=== PATIENT | male | born 1995 | race African-American/Black ===

== ENCOUNTER 2018-10-29 16:48 | Outpatient (REF) | payer MEDICAID, SELFPAY ==
[2018-10-29 18:54] LABS: ALT 50 U/L (16-63); AST 23 U/L (15-37); Albumin 3.6 g/dL (3.4-5.0); Alkaline Phosphatase 98 U/L (46-116); Anion Gap 11.2 mmol/L (3-11); BUN 12 mg/dL (7-18); Bilirubin, Total 0.4 mg/dL (0.2-1.0); CO2 28.8 mmol/L (21.0-32.0); CREATININE 0.91 mg/dL (0.70-1.30); Calcium 9.5 mg/dL (8.5-10.1); Calculated LDL 128 mg/dL; Chloride 98 mmol/L (98-107); Cholesterol 181 mg/dL (50-200); Glucose 296 mg/dL (70-100); HDL Cholesterol 25 mg/dL (40-60); Potassium 4.2 mmol/L (3.5-5.1); Sodium 138 mmol/L (136-145); TSH (W/Ref FT4) 1.53 uIU/mL (0.36-3.74); Total Protein 7.6 g/dL (6.4-8.2); Triglyceride 140 mg/dL (30-150)
== END 2018-10-29 17:08 ==
LOC: NCHCN 16:48
PROVIDERS: PCP Nurse Practitioner Adult Health; Visit Provider Family Medicine
DX: E11.65 Type 2 diabetes mellitus with hyperglycemia (principal); I10 Essential (primary) hypertension
CPT/HCPCS: 80053; 80061; 84443

== ENCOUNTER 2019-10-19 08:53 | Emergency (ER) | payer MEDICAID, SELFPAY ==
[2019-10-19 08:56] VITALS: BP 150/92; PULSE 66; RESP 16; TEMP 36.3; O2SAT 100
--- NOTE | 2019-10-19 09:13 | ED.GENADUL_ITS ---
Discharge Plan Disposition Patient Disposition: HOME Discharge Details Clinical Impression: Dental infection Primary Care Provider: Alix Thompson ED Provider: Chadwick Dunn Home Meds and New Rx's Prescriptions: New penicillin V potassium 500 mg tablet 500 mg PO QID Qty: 27 RF: 0 Continued glipizide 5 mg tablet 5 mg PO DAILY RF: 0 Bydureon 2 mg/0.65 mL pen injector 2 mg SC QWEEK RF: 0 metformin 1,000 mg tablet 1,000 mg PO BID RF: 0 Discharge Instructions Instructions: Dental Abscess (ED) Additional Instructions: Please take full course of penicillin as prescribed. Please take ibuprofen over the counter. Take 600mg by mouth every 6 hours as needed for pain. Please take acetaminophen (tylenol) - 650mg every 6 hours by mouth as needed for pain. Please contact your dentist to arrange follow-up. Call on Sunday. Return to the ER for any worsening or new concerning symptoms. Stand Alone Forms: Work Release Discharge Data Discharge Date/Time-TO BE ENTERED AT DEPARTURE: 10/19/19 09:23 HPI General Mode of arrival: ambulatory . Date/Time Provider Initiated Documentation: 10/19/19 09:04 . Limitations to Documentation: no limitations . Information obtained by: patient . HPI Narrative: 24-year-old male here with 3 days of right upper dental pain. Pain is worsening. Pain constant. Pain now moderate to severe. No modifiers. No associated fever. Related Data Home Medications Medication Instructions Recorded Confirmed exenatide microspheres 2 mg/0.65 2 mg SC QWEEK 04/21/19 10/19/19 mL subcutaneous pen injector glipizide 5 mg tablet 5 mg PO DAILY 04/21/19 10/19/19 metformin 1,000 mg tablet 1,000 mg PO BID 04/21/19 10/19/19 penicillin V potassium 500 mg PO QID #27 tab 10/19/19 Previous Rx's Medication Instructions Recorded penicillin V potassium 500 mg PO QID #27 tab 10/19/19 Allergies Allergy/AdvReac Type Severity Reaction Status Date / Time No Known Allergies Allergy Unverified 10/19/19 09:01 General Stated Complaint: DentalOral CATRACHO: 4 Review of Systems Constitutional Constitutional: Denies fever(s) ENT Ears, Nose, Mouth, and Throat: Reports as per HPI [facility] Medical History Diabetes mellitus Hypertension Urticaria Xeroderma Social History Smoking/Tobacco Use Status: Never Alcohol Intake: current Alcohol Intake frequency: holidays/special occasions only Drug use: Never Do you feel safe at home: Yes Do you feel safe in your relationship?: Yes Exam Const General: cooperative and no acute distress HENMT Face and sinus: no edema and no fluctuance Mouth: moist mucous membranes Throat: posterior oropharynx normal Other: Right upper incisor tender along the line with no fluctuance Eyes EOM: EOM intact bilaterally Neck Neck: trachea midline and supple Cardio Rate: regular rate and not tachycardic Rhythm: regular rhythm Skin General skin exam: no rashes or lesions noted Neuro General: patient alert and patient awake Course Vital Signs Vital signs: Vital Signs Temperature 36.3 C L 10/19/19 08:56 Pulse 66 10/19/19 08:56 Respiratory Rate 16 10/19/19 08:56 Blood Pressure 150/92 H 10/19/19 08:56 Pulse Oximetry 100 10/19/19 08:56 Temperature 36.3 C L 10/19/19 08:56 Temperature Source Temporal Artery Scan 10/19/19 08:56 Pulse 66 10/19/19 08:56 Respiratory Rate 16 10/19/19 08:56 Respiratory Effort Non-Labored 10/19/19 09:00 Blood Pressure 150/92 H 10/19/19 08:56 Blood Pressure Position Sitting 10/19/19 08:56 Pulse Oximetry 100 10/19/19 08:56 Oxygen Delivery Method Room Air 10/19/19 08:56 Oxygen Flow Rate 0 10/19/19 08:56 Pain Level 2 10/19/19 08:56
[2019-10-19] MEDS: Penicillin V POTASSIUM 500 MG TAB PO (09:17)
== END 2019-10-19 09:23 | disposition home or self-care (01) ==
PROVIDERS: Emergency Provider Student in an Organized Health Care Education/Training Program; PCP Nurse Practitioner Adult Health
DX: R68.84 Jaw pain (principal); K04.7 Periapical abscess without sinus; E11.9 Type 2 diabetes mellitus without complications; Z79.84 Long term (current) use of oral hypoglycemic drugs; I10 Essential (primary) hypertension
CPT/HCPCS: 99283

== ENCOUNTER 2019-11-11 14:43 | Outpatient (REF) | payer MEDICAID, SELFPAY ==
[2019-11-11 18:47] LABS: Anion Gap 8.8 mmol/L (3-11); BUN 13 mg/dL (7-18); CO2 28.2 mmol/L (21.0-32.0); CREATININE 1.08 mg/dL (0.70-1.30); Calcium 9.5 mg/dL (8.5-10.1); Chloride 103 mmol/L (98-107); Glucose 115 mg/dL (74-106); Sodium 140 mmol/L (136-145)
== END 2019-11-11 15:03 ==
LOC: NCHCN 14:43
PROVIDERS: PCP Nurse Practitioner Adult Health; Visit Provider Family Medicine
DX: E11.9 Type 2 diabetes mellitus without complications (principal)
CPT/HCPCS: 80048

== ENCOUNTER 2020-11-03 13:34 | Outpatient (REF) | payer MEDICAID, SELFPAY ==
[2020-11-03 19:46] LABS: ALT 43 U/L (16-63); AST 24 U/L (15-37); Albumin 3.5 g/dL (3.4-5.0); Alkaline Phosphatase 82 U/L (46-116); Anion Gap 8.3 mmol/L (3-11); BUN 12 mg/dL (7-18); Bilirubin, Total 0.2 mg/dL (0.2-1.0); CO2 27.7 mmol/L (21.0-32.0); Calcium 9.1 mg/dL (8.5-10.1); Chloride 105 mmol/L (98-107); Glucose 114 mg/dL (74-106); Potassium 4.3 mmol/L (3.5-5.1); Sodium 141 mmol/L (136-145); Total Protein 7.6 g/dL (6.4-8.2)
[2020-11-05 10:13] LABS: HIV-1/2 Ag & Ab Screen Negative (Negative)
[2020-11-05 10:42] LABS: Hepatitis C Ab w Rflx HCV PCR Negative (Negative)
== END 2020-11-03 13:35 | disposition home or self-care (01) ==
LOC: NCHCN 13:34
PROVIDERS: PCP Nurse Practitioner Adult Health; Visit Provider Family Medicine
DX: E11.9 Type 2 diabetes mellitus without complications (principal); Z68.43 Body mass index [BMI] 50.0-59.9, adult; Z11.4 Encounter for screening for human immunodeficiency virus [HIV]; Z11.59 Encounter for screening for other viral diseases; Z00.00 Encounter for general adult medical examination without abnormal findings
CPT/HCPCS: 80053; 86803; 87389

== ENCOUNTER 2021-11-07 13:45 | Outpatient (REF) | payer BC, MEDICAID, SELFPAY ==
[2021-11-07 15:46] LABS: BUN 11 mg/dL (7-18); CREATININE 1.2 mg/dL (0.70-1.30); Chloride 104 mmol/L (98-107); Estimated GFR 84.48 (mL/min/1.73m2); Glucose 191 mg/dL (74-106); Sodium 139 mmol/L (136-145)
--- OUTSIDE RECORDS SUMMARY | 2021-11-08 13:49 | XMS_ITS | Clinical Summary ---
:1995 Author Organization [place] [address] Care Team Providers Name Role Phone Louis Ferrell MD Primary Care Provider Encounters Date Type Specialty Care Team Description 09/26/2021 Notes Only General Surgery 08/30/2021 Telephone General Surgery Karen Stone from Last 3 Months Social History Tobacco Use Types Packs/Day Years Used Date Never Assessed Sex Assigned at Date Recorded Not on file Plan of Treatment Health Maintenance Due Date Last Done Comments Covid-19 Vaccine (#1) 1998 HIV screen 10/25/2011 Hepatitis C Screening 10/25/2011 Tdap adult 2012 Tetanus vaccine 2012 Influenza (Flu) vaccine (1 of 1 - Influenza standard 10/13/2021 series) Insurance Payer Benefit Plan / Subscriber ID Effective Dates Phone Addre ss Type Group [employer] [employer] [id number] 2021-Presen [address] [place] [address] Care Teams Instructional Aide Relationship Specialty Start Date End Date Louis Ferrell MD PCP - General Family Medicine 08/03/21 [place] [id number]
--- OUTSIDE RECORDS SUMMARY | 2021-11-08 13:49 | XMS_ITS | Encounter Summary ---
:1995 [place] [address] Care Team Providers Name Role Phone Louis Ferrell MD Primary Care Provider Encounter Details Date Type Department Care Team Description 09/26/2021 Notes Only General Surgery at [facility] [place] [address] Social History Tobacco Use Types Packs/Day Years Used Date Never Assessed Sex Assigned at Date Recorded Not on file documented as of this encounter Progress Notes Yanci Martini - 09/26/2021 4:00 PM EDT PATIENT ATTENDED THE INTRO TO BARIATRIC SURGERY ON 09/26/2021 FOR THE [facility] PROGRAM documented in this encounter Plan of Treatment Not on filedocumented as of this encounter Visit Diagnoses Not on filedocumented in this encounter Care Teams Soil Science Teacher Relationship Specialty Start Date End Date Louis Ferrell MD PCP - General Family Medicine 08/03/21 [place] [address] documented as of this encounter
--- OUTSIDE RECORDS SUMMARY | 2021-11-08 13:49 | XMS_ITS | Encounter Summary ---
:1995 Author Organization [facility] [place] [address] Care Team Providers Name Role Phone Lousi Ferrell MD Primary Care Provider Reason for Referral Consultation (Routine) - Closed Specialty Diagnoses / Procedures Referred By Contact Refer red To Contact General Surgery Diagnoses Morbid obesity Type 2 diabetes mellitus without complication, unspecified whether mcc insulin use Louis Ferrell MD [facility] [address] [place], [place] [address] [address] [place] [address] Fax: Referral ID Status Reason Start Date Expiration Date Visits V isits Requested Authorized [id number] Closed Consult, Test 08/03/2021 08/03/2022 6 6 & Treat PCP Updated and/or Approved Encounter Details Date Type Department Care Team Description 08/03/2021 Transcribe Orders eDH Incoming Louis Ferrell M D Morbid obesity; Referrals [address] Type 2 diabetes mellitus without complic ation, unspecified whether manager long term care insulin use [phone] [place] [address] Social History Tobacco Use Types Packs/Day Years Used Date Never Assessed Sex Assigned at Date Recorded Not on file documented as of this encounter Plan of Treatment Scheduled Referrals Name Type Priority Associated Diagnoses Order S chedule Referral to Outpatient Referral Routine Morbid obesi ty Ordered: Bariatric Surgery Type 2 diabetes 022 Program mellitus without complication, unspecified whether mcc insulin use documented as of this encounter Visit Diagnoses Diagnosis Morbid obesity Type 2 diabetes mellitus without complic ation, unspecified whether manager long term care insulin use documented in this encounter Care Teams [employer] Relationship Specialty Start Date End Date Louis Ferrell MD PCP - General Family Medicine 08/03/21 [place] [address] documented as of this encounter
--- OUTSIDE RECORDS SUMMARY | 2021-11-08 13:50 | XMS_ITS | Encounter Summary ---
:1995 Demographics Home Phone Preferred Language Unknown Marital Status Unknown Taoist Affiliation Unknown Race Unknown Ethnic Group Unknown Author Organization [facility] Address [address] [place] [address] Care Team Providers Name Role Phone Unavailable Primary Care Provider Unavailable Encounter Details Date Type Department Care Team Description 11/04/2020 Lab Requisition [facility] Outr Resulting Lab, Pathology & Laboratory Provider [facility] [address] [place] [address] Social History Tobacco Use Types Packs/Day Years Used Date Never Assessed Sex Assigned at Date Recorded Not on file documented as of this encounter Plan of Treatment Not on filedocumented as of this encounter Procedures Procedure Name Priority Date/Time Associated Diagnosis Comme nts HEPATITIS C AB W Routine 11/03/2020 12:00 Results for this REFLEX TO HCV RNA EDT procedure are in BY PCR the results section. documented in this encounter Results HEPATITIS C AB W REFLEX TO HCV RNA BY PCR (11/03/2020 12:00 EDT) Pathologist Sig nature Hep C Antibody Negative Negative [facility] Specimen Blood - Venous blood (substance) Performing Organization Address City/State/ZIP Code Phon e Number [facility] [address] [place] [address] SERVICES documented in this encounter Visit Diagnoses Not on filedocumented in this encounter
--- OUTSIDE RECORDS SUMMARY | 2021-11-08 13:50 | XMS_ITS | Clinical Summary ---
:1995 Demographics Home Phone Preferred Language Unknown Marital Status Unknown Adventism Affiliation Unknown Race Unknown Ethnic Group Unknown Author Organization [facility] Address [address] [place] [address] Care Team Providers Name Role Phone Unavailable Primary Care Provider Unavailable Social History Tobacco Use Types Packs/Day Years Used Date Never Assessed Sex Assigned at Date Recorded Not on file Plan of Treatment Health Maintenance Due Date Last Done Comments COVID-19 Vaccine (1) 2005 Hepatitis C Screen Completed 11/03/2020
--- OUTSIDE RECORDS SUMMARY | 2021-11-08 13:50 | XMS_ITS | Encounter Summary ---
:1995 Demographics Home Phone Preferred Language Unknown Marital Status Unknown Faith Affiliation Unknown Race Unknown Ethnic Group Unknown Author Organization [facility] Address [address] [place] [address] Care Team Providers Name Role Phone Unavailable Primary Care Provider Unavailable Encounter Details Date Type Department Care Team Description 11/04/2020 Lab Requisition [facility] Outr Resulting Lab, Pathology & Laboratory Provider [facility] [address] [place] [address] Social History Tobacco Use Types Packs/Day Years Used Date Never Assessed Sex Assigned at Date Recorded Not on file documented as of this encounter Plan of Treatment Not on filedocumented as of this encounter Procedures Procedure Name Priority Date/Time Associated Comments Diagnosis HIV 1/2 ANTIGEN AND Routine 11/03/2020 12:00 Resu lts for this ANTIBODY, 4TH EDT procedure are in GENERATION the results section. documented in this encounter Results HIV 1/2 ANTIGEN AND ANTIBODY, 4TH GENERATION (11/03/2020 12:00 EDT) HIV 1 and 2 Negative Negative [facility] Antibody/p24 Comment: LABORATORY Antigen, 4th If acute HIV-1 infection is suspected in a high risk ??patient, submit plasma specimen for HIV-1 RNA quantitation test. SERV ICES Generation Fourth Generation assay performed on the Siemens [employer] ur. Specimen Blood - Venous blood (substance) Performing Organization Address City/State/ZIP Code Phon e Number [facility] [address] [place] [address] SERVICES documented in this encounter Visit Diagnoses Not on filedocumented in this encounter
== END 2021-11-07 13:46 | disposition home or self-care (01) ==
LOC: NCHCN 13:45
PROVIDERS: PCP Nurse Practitioner Adult Health; Visit Provider Family Medicine
DX: E11.9 Type 2 diabetes mellitus without complications (principal)
CPT/HCPCS: 80048

== ENCOUNTER 2021-11-17 02:52 | Outpatient (CLI) | payer BC, MEDICAID, SELFPAY ==
--- NOTE | 2021-11-17 11:00 | NS.NUTBLAN_ITS ---
Horacio was referred to weight and diabetes self management. Horacio has had Dm2 since he was 17. He reports that he started to gain weight in puberty and has a strong family hx of HTN, DM and obesity. His mother just had weight loss surgery in [place]. 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 Sedentary 5'10 356 lbs BMI: 51 Diet Recall: Breakfast Lodge, Lodge for lunch, Dinner: home cooked. No simple sugars or liquid sugar in diet. Does not eat large portions. Meds: trulicity 1.5 q week, farxiga 5 mg, metformin 1000 mg BID Horacio reports his blood sugars have been in good control . No recent A1C, reports fasting levels < 130mg/dl. Horacio has noticed a difference in his appetite since starting Trulicity. He is no longer interested in bariatric surgery and would like to try diet and exercise to lose weight. His goal weight is 250 lbs. Session today focused on life style changes needed for sustained weight loss. Horacio plans to start going to gym a couple of times weekly. Educated Horacio on how to follow a lower carb, high protein diet with emphasis on lean protein, healthy fats and complex carbs. Goal weight loss per week is 10 lbs. Follow up 12/23/21 at 11 am.
== END 2021-11-17 02:53 | disposition home or self-care (01) ==
LOC: DS 02:52
PROVIDERS: PCP Nurse Practitioner Adult Health; Visit Provider Dietitian, Registered
DX: E66.01 Morbid (severe) obesity due to excess calories (principal); E11.9 Type 2 diabetes mellitus without complications; Z79.84 Long term (current) use of oral hypoglycemic drugs; Z68.43 Body mass index [BMI] 50.0-59.9, adult; Z71.3 Dietary counseling and surveillance
CPT/HCPCS: 97802

== ENCOUNTER 2021-12-29 03:35 | Outpatient (CLI) | payer BC, MEDICAID, SELFPAY ==
--- NOTE | 2021-12-29 14:00 | NS.NUTBLAN_ITS ---
Horacio returns for weight and diabetes management. Wt: 355 lbs. Down 1 lbs in last 4 weeks. PMH: DM2, morbid obesity. Meds: trulicity 1.5 mg qweek, farxiga 5 mg, metformin 1000 mg BID Diet Recall: B: 2 eggs and haines with protein shake, L: sandwich, D: home cooked or take out Exercise: 3-4 times weekly at gym Horacio is frustrated by lack of weight loss despite making some changes to diet and starting exercise at gym 3-4 times per week. Reviewed and adjusted meal plans and reinforced importance of counting protein and carb intake. Goal diet for weight loss is 2000 kcal, 100 g carb, 150 g protein, 60 g fat. Uses [employer] to log meals. Reports no issues with blood sugars or medications. Feeling well overall. Looking for another job that is less sedentary. Follow up 03/02/22 at 2 pm.
== END 2021-12-29 03:36 | disposition home or self-care (01) ==
LOC: DS 03:35
PROVIDERS: PCP Family Medicine; Visit Provider Dietitian, Registered
DX: E11.9 Type 2 diabetes mellitus without complications (principal); Z79.84 Long term (current) use of oral hypoglycemic drugs; E66.01 Morbid (severe) obesity due to excess calories; Z71.3 Dietary counseling and surveillance
CPT/HCPCS: 97803

== ENCOUNTER 2022-12-28 15:46 | Outpatient (REF) | payer BC, SELFPAY ==
--- OUTSIDE RECORDS SUMMARY | 2022-12-28 15:54 | XMS_ITS | Continuity of Care Document ---
Author Name Unknown Organization [facility] Address [address] [place] [id number] Encounter [id number] FIN [id number] Date(s): 01/03/22 - 01/03/[address] [address]- Encounter Diagnosis Encounter for drug screening(Discharge Diagnosis) - 01/03/22 Discharge Disposition: Home or Self Care Attending Physician: Jessica Patricio APRN
[2022-12-28 18:46] LABS: Anion Gap 10.4 mmol/L (3-11); BUN 13 mg/dL (7-18); CO2 27.6 mmol/L (21.0-32.0); CREATININE 1.3 mg/dL (0.70-1.30); Chloride 104 mmol/L (98-107); Estimated GFR 76.26 (mL/min/1.73m2); Glucose 168 mg/dL (74-106); Potassium 4.3 mmol/L (3.5-5.1); Sodium 142 mmol/L (136-145)
[2022-12-28 18:52] LABS: Calculated LDL 104 mg/dL (<100); Cholesterol 163 mg/dL (<200); HDL Cholesterol 32 mg/dL (40-60); Triglyceride 137 mg/dL (<150)
[2022-12-30 09:22] LABS: HIV-1/2 Ag & Ab Screen Negative (Negative)
[2023-01-01 11:05] LABS: Hepatitis B Surface Ag Negative (Negative)
[2023-01-01 11:12] LABS: HBs Antibody, Quant 4.8 mIU/mL (See Note); Hepatitis B Surface Ab Negative (See Note)
[2023-01-01 11:47] LABS: Hep B Core Antibody Negative (Negative)
== END 2022-12-28 15:47 | disposition home or self-care (01) ==
LOC: NCHCN 15:46
PROVIDERS: PCP Family Medicine; Visit Provider Family Medicine
DX: Z00.00 Encounter for general adult medical examination without abnormal findings (principal); E11.9 Type 2 diabetes mellitus without complications; Z13.220 Encounter for screening for lipoid disorders; Z11.4 Encounter for screening for human immunodeficiency virus [HIV]; Z11.59 Encounter for screening for other viral diseases
CPT/HCPCS: 80048; 80061; 86704; 86706; 87340; 87389

== ENCOUNTER 2023-03-29 19:20 | Outpatient (REF) | payer BC, SELFPAY ==
[2023-03-29 20:02] LABS: Hemoglobin A1C 7.5 % (<5.7)
== END 2023-03-29 19:21 | disposition home or self-care (01) ==
LOC: NCHCN 19:20
PROVIDERS: PCP Family Medicine; Visit Provider Family Medicine
DX: E11.9 Type 2 diabetes mellitus without complications (principal)
CPT/HCPCS: 83036

== ENCOUNTER 2023-11-22 17:26 | Outpatient (REF) | payer BC, SELFPAY ==
[2023-11-22 17:11] LABS: COMMENT (LAB VIEW ONLY) 210.91 mg/dL; Microalb ug/mg Crea 11.4 ug/mg Cr
--- OUTSIDE RECORDS SUMMARY | 2023-11-22 17:28 | XMS_ITS | Encounter Summary ---
Author Organization [facility] [place] [address] Care Team Providers Care Level Glass Vial Filler Name Role Phone Louis Ferrell MD Primary Care Provider [phone] Encounter Details Date Type Department Care Team (Late st Contact Info) Description 09/26/2021 4:00 PM EDT Notes [place] [address] Social History Tobacco Use Types Packs/Day Years Used Date Smoking Tobacco: Never Assessed Sex and Gender Information Value Date Recorded Sex Assigned at Not on file Gender Identity Not on file Sexual Orientation Not on file documented as of this encounter Progress Notes * Yanci Martini - 09/26/2021 4:00 PM EDT PATIENT ATTENDED THE INTRO TO BARIATRIC SURGERY ON 09/26/2021 FOR THE [facility] PROGRAM documented in this encounter Plan of Treatment Not on file documented as of this encounter Visit Diagnoses Not on filedocumented in this encounter Care Teams Level Glass Vial Filler Relationship Specialty Start Date End Date Louis Ferrell MD PCP - General Family Medicine 08/03/21 documented as of this encounter
--- OUTSIDE RECORDS SUMMARY | 2023-11-22 17:28 | XMS_ITS | Encounter Summary ---
Author Organization [facility] Address [address] [place] [address] Care Team Providers Care Restaurant Managing Partner Name Role Phone Unavailable Primary Care Provider Unavailabl e Encounter Details Date Type Department Care Team (Late st Contact Info) Description 12/29/2022 Lab Requisition [facility] Pathology & Laboratory Medicine - [address] [address] Outr Resulting Lab, Provider Social History Tobacco Use Types Packs/Day Years Used Date Smoking Tobacco: Never Assessed Sex and Gender Information Value Date Recorded Sex Assigned at Not on file Gender Identity Not on file Sexual Orientation Not on file documented as of this encounter Plan of Treatment Not on file documented as of this encounter Procedures Procedure Name Priority Date/Time Associated Diagnosis Comments HOLD SST Today 12/28/2022 16:00 EST HEPATITIS B CORE ANTIBODY (TOTAL) Today 12/28/2022 16:00 EST HEPATITIS B SURFACE ANTIBODY Today 12/28/2022 16:00 EST HEPATITIS B SURFACE ANTIGEN Today 12/28/2022 16:00 EST documented in this encounter Results * HOLD SST (12/28/2022 16:00 EST) Hold Hold 12/29/2022 18:31 EST [facility] Blood VENOUS BLOOD / Unknown 12/28/2022 16:00 EST 12/29/2022 17:21 EST Provider Outr Resulting Lab LAB INFO SER VICE AND SUPPORT & PHONE RESULT [facility] [address] [place] [address] * HEPATITIS B SURFACE ANTIBODY (12/28/2022 16:00 EST) Hep B Surface Ab, Quantitative 4.8 See Note mIU/mL 01/01/2023 11:06 EST [facility] Comment: Reference Range for Hep B Surface Ab, Quant: Positive: >= 10.0 mIU/mL Negative: ??< 10.0 mIU/mL Patient is presumed to not be immune to infection with Hepatitis B Virus. Hep B Surface Ab, Qualitative Negative See Note 01/01/2023 11:06 EST [facility] Comment: Reference Range for Hep B Surface Ab, Qual: Unvaccinated: ??Negative Vaccinated: ??Positive Blood VENOUS BLOOD / Unknown 12/28/2022 16:00 EST 12/29/2022 17:20 EST Provider Outr Resulting Lab CHEMISTRY & BLOOD GAS ORDERABLES Performing Organization Address [facility] Co de Phone Number [facility] [address] [place] [address] * HEPATITIS B CORE ANTIBODY (TOTAL) (12/28/2022 16:00 EST) Hepatitis B Core Ab, Total Negative Negative 01/01/2023 11:42 EST [facility] Blood VENOUS BLOOD / Unknown 12/28/2022 16:00 EST 12/29/2022 17:20 EST Provider Outr Resulting Lab CHEMISTRY & BLOOD GAS ORDERABLES Performing Organization Address [facility] Co de Phone Number [facility] [address] [place] [address] * HEPATITIS B SURFACE ANTIGEN (12/28/2022 16:00 EST) Hep B Surface Ag Negative Negative 01/01/2023 11:00 EST [facility] Blood VENOUS BLOOD / Unknown 12/28/2022 16:00 EST 12/29/2022 17:20 EST Provider Outr Resulting Lab CHEMISTRY & BLOOD GAS ORDERABLES Performing Organization Address [facility]/ZIP Co de Phone Number [facility] [address] [place] [address] documented in this encounter Visit Diagnoses Not on filedocumented in this encounter
--- OUTSIDE RECORDS SUMMARY | 2023-11-22 17:28 | XMS_ITS | Referral Summary ---
Author Organization [facility] Address [address] [place] [address] Care Team Providers Care Composition Floor Layer Name Role Phone Unavailable Primary Care Provider Unavailabl e Social History Tobacco Use Types Packs/Day Years Used Date Smoking Tobacco: Never Assessed Sex and Gender Information Value Date Recorded Sex Assigned at Not on file Gender Identity Not on file Sexual Orientation Not on file Plan of Treatment Not on file Procedures Procedure Name Priority Date/Time Associated Diagnosis Comments HEPATITIS C AB W REFLEX TO HCV RNA BY PCR Routine 11/03/2020 12:00 EDT from Last 3 Months or Most Recently Relevant to Health Maintenance Results * HEPATITIS C AB W REFLEX TO HCV RNA BY PCR (11/03/2020 12:00 EDT) Hep C Antibody Negative Negative 11/05/2020 10:37 EDT [facility] Blood VENOUS BLOOD / Unknown 11/03/2020 12:00 EDT 11/04/2020 15:44 EDT Provider Outr Resulting Lab CHEMISTRY & BLOOD GAS ORDERABLES [facility] [address] [place] [address] from Last 3 Months or Most Recently Relevant to Health Maintenance
--- OUTSIDE RECORDS SUMMARY | 2023-11-22 17:28 | XMS_ITS | Clinical Summary ---
Author Organization [facility] [place] [address] Care Team Providers Care Truck Headlight Assembler Name Role Phone Louis Ferrell MD Primary Care Provider [phone] Social History Tobacco Use Types Packs/Day Years Used Date Smoking Tobacco: Never Assessed Sex and Gender Information Value Date Recorded Sex Assigned at Not on file Gender Identity Not on file Sexual Orientation Not on file Plan of Treatment Health Maintenance Due Date Last Done Comments HIV screen 10/25/2011 Hepatitis C Screening 10/25/2011 Hepatitis B vaccine (0-59 yrs) (1) 2012 Tetanus/Diphtheria/Pertussis Vaccines (1 - Tdap) 10/24 Covid-19 Vaccine (1 - season) 2023 Influenza (Flu) vaccine (1 o f 1 - Influenza standard series) 10/14/2023 Care Teams Truck Headlight Assembler Relationship Specialty Start Date End Date Louis Ferrell MD PCP - General Family Medicine 08/03/21
--- OUTSIDE RECORDS SUMMARY | 2023-11-22 17:28 | XMS_ITS | Encounter Summary ---
Author Organization [facility] Address [address] [place] [address] Care Team Providers Care Rd Scientist Name Role Phone Unavailable Primary Care Provider Unavailabl e Encounter Details Date Type Department Care Team (Late st Contact Info) Description 11/04/2020 Lab Requisition [facility] Pathology & Laboratory Medicine - [facility] [address] [place] [address] Outr Resulting Lab, Provider Social History Tobacco [...] RNA BY PCR Routine 11/03/2020 12:00 EDT documented in this encounter Results * HEPATITIS C AB W REFLEX TO HCV RNA BY PCR (11/03/2020 12:00 EDT) Hep C Antibody Negative Negative 11/05/2020 10:37 EDT [facility] Blood VENOUS BLOOD / Unknown 11/03/2020 12:00 EDT 11/04/2020 15:44 EDT Provider Outr Resulting Lab CHEMISTRY & BLOOD GAS ORDERABLES [facility] [address] [place] [address] documented in this encounter Visit Diagnoses Not on filedocumented in this encounter
--- OUTSIDE RECORDS SUMMARY | 2023-11-22 17:28 | XMS_ITS | Encounter Summary ---
Author Organization [facility] Address [address] [place] [address] Care Team Providers Care Picker Packer Name Role Phone Unavailable Primary Care Provider Unavailabl e Encounter Details Date Type Department Care Team (Late st Contact Info) Description 11/04/2020 Lab Requisition [facility] Pathology & Laboratory Medicine - [facility] [address] [place] [address] Outr Resulting Lab, Provider Social History Tobacco [...] Procedure Name Priority Date/Time Associated Diagnosis Comments HIV 1/2 ANTIGEN AND ANTIBODY, 4TH GENERATION Routine 11/03/2020 12:00 EDT documented in this encounter Results * HIV 1/2 ANTIGEN AND ANTIBODY, 4TH GENERATION (11/03/2020 12:00 EDT) HIV 1 and 2 Antibody/p24 Antigen, 4th Generation Negative Negative 11/05/2020 10:09 EDT [facility] Comment: If acute HIV-1 infection is suspected in a high risk ??patient, submit plasma specimen for HIV-1 RNA quantitation test. Fourth Generation assay performed on the Siemens [employer]. Blood VENOUS BLOOD / Unknown 11/03/2020 12:00 EDT 11/04/2020 15:44 EDT Provider Outr Resulting Lab IMMUNOLOGY A ND SEROLOGY ORDERABLES [facility] [address] [place] [address] documented in this encounter Visit Diagnoses Not on filedocumented in this encounter
--- OUTSIDE RECORDS SUMMARY | 2023-11-22 17:28 | XMS_ITS | Encounter Summary ---
[place] [address] Care Team Providers Care Arterial Embalmer Name Role Phone Louis Ferrell MD Primary Care Provider [phone] Encounter Details Date Type Department Care Team (Late st Contact Info) Description 08/30/2021 Telephone [place] [phone] Karen Combs Social History Tobacco Use Types Packs/Day Years Used Date Smoking Tobacco: Never Assessed Sex and Gender Information Value Date Recorded Sex Assigned at Not on file Gender Identity Not on file Sexual Orientation Not on file documented as of this encounter Miscellaneous Notes * Telephone Encounter - Karen Stone - 08/30/2021 8:53 AM EDT Returned patients call from voicemail that was received; had to leave message for them to return mycall. documented in this encounter Plan of Treatment Not on file documented as of this encounter Visit Diagnoses Not on filedocumented in this encounter Care Teams Arterial Embalmer Relationship Specialty Start Date End Date Louis Ferrell MD PCP - General Family Medicine 08/03/21 documented as of this encounter
--- OUTSIDE RECORDS SUMMARY | 2023-11-22 17:28 | XMS_ITS | Encounter Summary ---
[place] [address] Care Team Providers Care Medical Science Liaison Name Role Phone Louis Ferrell MD Primary Care Provider [phone] Reason for Referral * Consultation (Routine) - Closed Specialty Diagnoses / Procedures Referred By Dulce uribe Referred To Contact General Surgery Diagnoses Morbid obesity Type 2 diabetes mellitus without complication, unspecified whether technician terminal and repeater insulin use Louis Ferrell MD [address] [place] [address] [place] [address] [facility] Gen Surgery [address] [place] [phone] Referral ID Status Reason Start Date Expiration Date V isits Requested Visits Authorized [id number] Closed Consult, Test & Treat PCP Updated and/or Approved 08/03/2021 08/03/2022 6 6 Encounter Details Date Type Department Care Team (Late st Contact Info) Description 08/03/2021 Transcribe Orders eDH Incoming Referrals [phone] Louis Ferrell MD [address] [place] [address] [address] [place], [place] [id number] Morbid obesity; Type 2 diabetes mellitus without complication, unspecified whether usp insulin use Social History Tobacco Use Types Packs/Day Years Used Date Smoking Tobacco: Never Assessed Sex and Gender Information Value Date Recorded Sex Assigned at Not on file Gender Identity Not on file Sexual Orientation Not on file documented as of this encounter Plan of Treatment Scheduled Referrals Name Type Priority Associated Diagnoses Orde r Schedule Referral to Bariatric Surgery Program Outpatient Referral Routine Morbid obesity Type 2 diabetes mellitus without complication, unspecified whether technician terminal and repeater insulin use Ordered: 08/03/2021 documented as of this encounter Visit Diagnoses Diagnosis Morbid obesity Type 2 diabetes mellitus without complication, unspecified whether usp insulin use documented in this encounter Care Teams Medical Science Liaison Relationship Specialty Start Date End Date Louis Ferrell MD PCP - General Family Medicine 08/03/21 documented as of this encounter
--- OUTSIDE RECORDS SUMMARY | 2023-11-22 17:28 | XMS_ITS | Encounter Summary ---
Author Organization [facility] Address [address] [place] [id number] Care Team Providers Care Regulator Inspector Name Role Phone Unavailable Primary Care Provider Unavailabl e Encounter Details Date Type Department Care Team (Late st Contact Info) Description 12/29/2022 Lab Requisition [facility] Pathology & Laboratory Medicine - [facility] [address] [place] [address] Outr Resulting Lab, Provider Social History Tobacco [...] 1/2 ANTIGEN AND ANTIBODY, 4TH GENERATION Routine 12/28/2022 16:00 EST documented in this encounter Results * HIV 1/2 ANTIGEN AND ANTIBODY, 4TH GENERATION (12/28/2022 16:00 EST) HIV 1 and 2 Antibody/p24 Antigen, 4th Generation Negative Negative 12/30/2022 9:17 EST [facility] Comment:If acute HIV-1 infec tion is suspected in a high risk patient, submit plasma specimen for HIV-1 RNA quantitation test. Blood VENOUS BLOOD / Unknown 12/28/2022 16:00 EST 12/29/2022 17:20 EST Narrative [facility] - 12/30/2022 9:17 EST Fourth Generation assay performed on the Siemens Centaur XPT. Provider Outr Resulting Lab IMMUNOLOGY A ND SEROLOGY ORDERABLES [facility] [address] [place] [address] documented in this encounter Visit Diagnoses Not on filedocumented in this encounter
--- OUTSIDE RECORDS SUMMARY | 2023-11-22 17:28 | XMS_ITS | Clinical Summary ---
Author Organization [facility] Address [address] [place] [id number] Care Team Providers Care Irrigation Pump Installer Name Role Phone Unavailable Primary Care Provider Unavailabl e Social History Tobacco Use Types Packs/Day Years Used Date Smoking Tobacco: Never Assessed Sex and Gender Information Value Date Recorded Sex Assigned at Not on file Gender Identity Not on file Sexual Orientation Not on file Plan of Treatment Health Maintenance Due Date Last Done Comments Hepatitis B Vaccine (1 of 3 - 19+ 3-dose series) 10/24 COVID-19 Vaccine (2022- season) 2022 Hepatitis C Screen Completed 11/03/2020 Procedures Procedure Name Priority Date/Time Associated Diagnosis Comments HEPATITIS C AB W REFLEX TO HCV RNA BY PCR Routine 11/03/2020 12:00 EDT from Last 3 Months or Most Recently Relevant to Health Maintenance Results * HEPATITIS C AB W REFLEX TO HCV RNA BY PCR (11/03/2020 12:00 EDT) Hep C Antibody Negative Negative 11/05/2020 10:37 EDT [facility] Blood VENOUS BLOOD / Unknown 11/03/2020 12:00 EDT 11/04/2020 15:44 EDT Provider Outr Resulting Lab CHEMISTRY & BLOOD GAS ORDERABLES [facility] [address] [place] [address] from Last 3 Months or Most Recently Relevant to Health Maintenance
== END 2023-11-22 17:27 | disposition home or self-care (01) ==
LOC: NCHCN 17:26
PROVIDERS: PCP Family Medicine; Visit Provider Student in an Organized Health Care Education/Training Program
DX: E11.9 Type 2 diabetes mellitus without complications (principal)
CPT/HCPCS: 82043; 82570

== ENCOUNTER 2024-08-28 13:18 | Outpatient (REF) | payer BC, SELFPAY ==
[2024-08-28 16:24] LABS: Anion Gap 7.0 mmol/L (3-11); BUN 10 mg/dL (7-18); CO2 29.0 mmol/L (21.0-32.0); Calcium 8.9 mg/dL (8.5-10.1); Calculated LDL 120 mg/dL (<100); Chloride 101 mmol/L (98-107); Cholesterol 164 mg/dL (<200); Estimated GFR 117.83 (mL/min/1.73m2); Glucose 256 mg/dL (74-106); HDL Cholesterol 34 mg/dL (>or=40); Potassium 4.3 mmol/L (3.5-5.1); Sodium 137 mmol/L (136-145); Triglyceride 53 mg/dL (<150)
[2024-08-28 16:45] LABS: COMMENT (LAB VIEW ONLY) 152.25 mg/dL; Microalb ug/mg Crea 23.9 ug/mg Cr
== END 2024-08-28 13:19 | disposition home or self-care (01) ==
LOC: NCHCN 13:18
PROVIDERS: PCP Family Medicine; Visit Provider Student in an Organized Health Care Education/Training Program
DX: Z13.220 Encounter for screening for lipoid disorders (principal); E11.9 Type 2 diabetes mellitus without complications
CPT/HCPCS: 80048; 80061; 82043; 82570